=== PATIENT | female | born 1950 | race Caucasian/White ===

== ENCOUNTER 2019-05-13 04:26 | Emergency (ER) | payer OTHER ==
--- NOTE | 2019-05-13 04:50 | PDOC ---
History of Present Illness - General Chief Complaint: Pain, Acute Stated Complaint: ABD PAIN Time Seen by Provider: 05/13/19 04:50 - History of Present Illness Initial Comments: 05/13/19 05:09 69 year old with a history of HTN, HLD, DM who presents with constant cramping upper abdominal pain that onset at 2130 after taking cholesterol medicine and motrin. The patient felt nauseous and had 4 episodes of nbnb emesis. She denies chest pain or shortness of breath. She denies diarrhea, dysuria, hematuria or fever. She has no other complaints. ROS GENERAL/CONSTITUTIONAL: No fever or chills. No weakness. HEAD, EYES, EARS, NOSE AND THROAT: No change in vision. No ear pain or discharge. No sore throat. CARDIOVASCULAR: No chest pain or shortness of breath RESPIRATORY: No cough, wheezing, or hemoptysis. GASTROINTESTINAL: No nausea, vomiting, diarrhea or constipation. GENITOURINARY: No dysuria, frequency, or change in urination. MUSCULOSKELETAL: No joint or muscle swelling or pain. No neck or back pain. SKIN: No rash NEUROLOGIC: No headache, vertigo, loss of consciousness, or change in strength/ sensation. PE GENERAL: Awake, alert, and fully oriented, in no acute distress HEAD: No signs of trauma, normocephalic, atraumatic EYES: EOMI, sclera anicteric, conjunctiva clear ENT: oropharynx clear without exudates. Moist mucosa NECK: Normal ROM, supple, LUNGS: No distress, speaks full sentences, clear to auscultation bilaterally HEART: Regular rate and rhythm, normal S1 and S2, no murmurs, rubs or gallops, peripheral pulses normal and equal bilaterally. ABDOMEN: Soft, + very slight epigastric tenderness, normoactive bowel sounds. No guarding, no rebound. No masses EXTREMITIES : Normal inspection, Normal range of motion, no edema. No clubbing or cyanosis. NEUROLOGICAL: Cranial nerves II through XII grossly intact. Normal speech, no focal sensorimotor deficits SKIN: Warm, Dry, normal turgor, no rashes or lesions noted MDM DDX including but not limited to: GERD r/o acs W/U: - cbc, cmp, trop, ekg, cxr, ua TX: - pepcid, maalox ED Course: labs wnl trop negative ekg nsr at 97bpm patient still complaining of abdominal pain on reassesment CTAP ordered Gloria Fu, PGY2 Emergency Medicine Past History - Past Medical History Allergies/Adverse Reactions: Allergies Allergy/AdvReac Type Severity Reaction Status Date / Time No Known Allergies Allergy Verified 05/13/19 05:23 Home Medications: Ambulatory Orders Nifedipine 10 mg PO DAILY 05/13/19 metFORMIN HCL [Metformin ER Osmotic] 1,000 mg PO DAILY 05/13/19 - Psycho Social/Smoking Cessation Hx Smoking History: Never smoked Have you smoked in the past 12 months: No Information on smoking cessation initiated: No Hx Alcohol Use: No Drug/Substance Use Hx: No *Physical Exam - Vital Signs Last Vital Signs Temp Pulse Resp BP Pulse Ox 98.4 F 99 H 20 155/80 98 05/13/19 04:45 05/13/19 04:45 05/13/19 04:45 05/13/19 04:45 05/13/19 04:45 ED Treatment Course - LABORATORY CBC & Chemistry Diagram: 05/13/19 05:20 05/13/19 05:20 Discharge - Discharge Information Problems reviewed: Yes Clinical Impression/Diagnosis: Abdominal pain Qualifiers: Abdominal location: epigastric Qualified Code(s): R10.13 - Epigastric pain Nausea and vomiting Qualifiers: Vomiting type: unspecified Vomiting Intractability: non-intractable Qualified Code(s): R11.2 - Nausea with vomiting, unspecified Condition: Improved Disposition: HOME - Follow up/Referral Referrals: Ying Molina [Primary Care Provider] - - Patient Discharge Instructions Patient Printed Discharge Instructions: DI for Abdominal Pain-Adult Additional Instructions: You were seen in the Emergency Department for evaluation of abdominal pain. Your labs and imaging were unremarkable. Review the handout provided at discharge. Follow up with your primary care provider within a week. Return to the Emergency Department if you develop fevers/chills, chest pain, trouble breathing, worsening pain, inability to tolerate liquids, worsening symptoms, or any new/concerning symptoms. At this time, maintain a mostly liquid diet, once your are able to tolerate liquids well, you may advance your diet to include soft foods, and once that is tolerated, you may re-introduce solid foods. - Post Discharge Activity
[2019-05-13] MEDS ORDERED: MAG HYDROX/AL HYDROX/SIMETH -MYLANTA- ORAL SUSPENSION PO ONE (05:07)
[2019-05-13] MEDS ORDERED: FAMOTIDINE 20 MG/50 ML IVPB 20 MG/50 ML MG IVPB ONE ×2 (05:07→05:25)
[2019-05-13] MEDS ORDERED: MAG HYDROX/AL HYDROX/SIMETH 30 ML UNIT-DOSE CUP ONE ×2 (05:24→10:06)
[2019-05-13 05:42] LABS: BASO % 0.9 % (0-2.0); EOS % 0.3 % (0-4.5); HEMATOCRIT 39.9 % (32.4-45.2); HEMOGLOBIN 13.5 GM/dL (10.7-15.3); LYMPH % 22.2 % (8-40); MCH 30.9 pg (25.7-33.7); MCHC 33.9 g/dl (32.0-36.0); MEAN CELL VOLUME 91.2 fl (80-96); MEAN PLT VOLUME 9.6 fl (7.5-11.1); MONO % 2.7 % (3.8-10.2); NEUT % 73.9 % (42.8-82.8); PLATELET COUNT 191 K/MM3 (134-434); RBC 4.37 M/mm3 (3.60-5.2); RDW 14.4 % (11.6-15.6); WHITE BLOOD COUNT 10.8 K/mm3 (4.0-10.0)
[2019-05-13 05:43] VITALS: BMI 21.1
--- NOTE | 2019-05-13 05:43 | PDOC ---
Attending Attestation - Resident Resident Name: Gloria Fu - ED Attending Attestation I have performed the following: I have examined & evaluated the patient, The case was reviewed & discussed with the resident, I agree w/resident's findings & plan - HPI HPI: 05/13/19 07:09 Pt comes with epigastric pain that began at 9:30P - Physicial Exam PE: 05/13/19 07:10 Agree with resident exam - Medical Decision Making 05/13/19 07:10 Pt has normal labs; only glc elevated 05/13/19 07:[address] pending 05/14/19 00:18 Pt signed out to the day ER team
[2019-05-13 06:23] LABS: ALBUMIN 4.2 g/dl (3.4-5.0); ALK PHOS 86 U/L (45-117); ANION GAP 9 MMOL/L (8-16); BILIRUBIN,TOTAL 0.5 mg/dL (0.2-1); BLOOD UREA NITROGEN 10.2 mg/dL (7-18); CHLORIDE 103 mmol/L (98-107); CO2 27 mmol/L (21-32); CREATININE 0.8 mg/dL (0.55-1.3); GLUCOSE,RANDOM 244 mg/dL (74-106); POTASSIUM 4.3 mmol/L (3.5-5.1); SGOT/AST 12 U/L (15-37); SGPT/ALT 24 U/L (13-61); SODIUM 139 mmol/L (136-145); TOT PROT 7.6 g/dl (6.4-8.2)
[2019-05-13] MEDS ORDERED: ACETAMINOPHEN 1000 MG/100 ML VIAL (NON FORMULARY) IVPB ONE (06:36)
[2019-05-13] MEDS ORDERED: ACETAMINOPHEN INJECTION 100 ML IVPB ONE (06:38)
--- NOTE | 2019-05-13 07:15 | PDOC ---
*Physical Exam - Vital Signs Last Vital Signs Temp Pulse Resp BP Pulse Ox 98.4 F 99 H 20 155/80 98 05/13/19 04:45 05/13/19 04:45 05/13/19 04:45 05/13/19 04:45 05/13/19 04:45 ED Treatment Course - LABORATORY CBC & Chemistry Diagram: 05/13/19 05:20 05/13/19 05:20 - ADDITIONAL ORDERS Additional order review: Laboratory Results 05/13/19 05/13/19 05:20 05:20 Sodium 139 Cancelled Potassium 4.3 Cancelled Chloride 103 Cancelled Carbon Dioxide 27 Cancelled Anion Gap 9 Cancelled BUN 10.2 Cancelled Creatinine 0.8 Cancelled Est GFR (CKD-EPI)AfAm 87.18 Cancelled Est GFR (CKD-EPI)NonAf 75.22 Cancelled Random Glucose 244 H Cancelled Calcium 9.0 Cancelled Total Bilirubin 0.5 Cancelled AST 12 L Cancelled ALT 24 Cancelled Alkaline Phosphatase 86 Cancelled Troponin I < 0.02 Total Protein 7.6 Cancelled Albumin 4.2 Cancelled 05/13/19 05:20 RBC 4.37 MCV 91.2 MCHC 33.9 RDW 14.4 MPV 9.6 Neutrophils % 73.9 Lymphocytes % 22.2 Monocytes % 2.7 L Eosinophils % 0.3 Basophils % 0.9 - RADIOLOGY Radiograph Interpretation: EXAM: CT abdomen and pelvis with IV contrast. Findings: The visualized portions of the lower thorax are unremarkable. There is no free intra-abdominal gas or fluid. The liver, gallbladder, adrenals, pancreas, and spleen are within normal limits. There is no hydronephrosis or renal calculi bilaterally. There is a tiny left- sided renal hypodensity which is too small to characterize. The bilateral kidneys are otherwise normal. There are no enlarged abdominal or pelvic lymph nodes, by size criteria. The urinary bladder is unremarkable. The pelvic organs are grossly unremarkable, given limitations of CT for evaluating them. The appendix is normal. The remainder of the bowel is unremarkable. There is no evidence of bowel obstruction. There are no abdominal wall hernias. There is some lower lumbar degenerative disc disease. The remainder the visualized bony structures are within normal limits for the patient's age. Impression: Unremarkable CT of the abdomen and pelvis. 05/13/19 08:01 Right upper quadrant abdominal ultrasound FINDINGS: Liver is normal in size and no focal lesions. No gallstones. No abnormal bile duct dilatation. Visualized portions of the pancreas, aorta and IVC unremarkable. Right kidney measures 9.3 cm is unremarkable. IMPRESSION: Negative study 05/13/19 09:48 - Medications Given in the ED: ED Medications Discontinued Medications Generic Name Dose Route Start Last Admin Trade Name Fidencio PRN Reason Stop Dose Admin Acetaminophen 1,000 mg 05/13/19 06:36 05/13/19 06:48 Ofirmev Injection - IVPB 05/13/19 06:37 1,000 mg ONCE ONE Administration Al Hydroxide/Mg Hydroxide 30 ml 05/13/19 05:07 05/13/19 05:33 Mylanta Suspension - PO 05/13/19 05:08 30 ml ONCE ONE Administration Famotidine/Sodium Chloride 20 mg in 50 mls @ 100 mls/hr 05/13/19 05:07 05:33 Pepcid 20 Mg Premixed Ivpb - IVPB 05/13/19 05:36 100 mls/hr ONCE ONE Administration Medical Decision Making - Medical Decision Making Pt received as sign out from Dr. Fu 69 year old with a history of HTN, HLD, DM who presents with constant cramping upper abdominal pain that onset at 2130 after taking cholesterol medicine and motrin. Pending CT A&P, labs, and reassess Lipase added on 05/13/19 07:[address] A&P and RUQ US w/o acute pathology UA w/o evidence of UTI Pt feels improved and is tolerating PO at this time Plan for D/C w/ PCP f/u Discharge instructions and return precautions given Pt in agreement and verbalized understanding Dispo: home 05/13/19 09:58 Discharge - Discharge Information Problems reviewed: Yes Clinical Impression/Diagnosis: Abdominal pain Qualifiers: Abdominal location: epigastric Qualified Code(s): R10.13 - Epigastric pain Nausea and vomiting Qualifiers: Vomiting type: unspecified Vomiting Intractability: non-intractable Qualified Code(s): R11.2 - Nausea with vomiting, unspecified Condition: Improved Disposition: HOME - Admission No - Follow up/Referral Referrals: Ying Molina [Primary Care Provider] - - Patient Discharge Instructions Patient Printed Discharge Instructions: DI for Abdominal Pain-Adult Additional Instructions: You were seen in the Emergency Department for evaluation of abdominal pain. Your labs and imaging were unremarkable. Review the handout provided at discharge. Follow up with your primary care provider within a week. Return to the Emergency Department if you develop fevers/chills, chest pain, trouble breathing, worsening pain, inability to tolerate liquids, worsening symptoms, or any new/concerning symptoms. At this time, maintain a mostly liquid diet, once your are able to tolerate liquids well, you may advance your diet to include soft foods, and once that is tolerated, you may re-introduce solid foods. - Post Discharge Activity
[2019-05-13 07:19] VITALS: BP 150/86; PULSE 97; TEMP 98.5
[2019-05-13 07:27] LABS: LIPASE 172 U/L (73-393)
[2019-05-13 08:58] LABS: URINE APPEARANCE CLEAR; URINE BILIRUBIN NEGATIVE (NEGATIVE); URINE COLOR YELLOW
[2019-05-13 08:59] LABS: PH,URINE 7.5 (5.0-8.0); URINE GLUCOSE (UA) 500 mg/dl (NEGATIVE); URINE KETONE NEGATIVE (NEGATIVE); URINE LEUK ESTERASE NEGATIVE (NEGATIVE); URINE NITRITE NEGATIVE (NEGATIVE); URINE PROTEIN NEGATIVE (NEGATIVE); URINE UROBILINOGEN 0.2 mg/dL (0.2-1.0)
[2019-05-13] MEDS ORDERED: MAG HYDROX/AL HYDROX/SIMETH 30 ML UNIT-DOSE CUP PO ONE (10:05)
--- NOTE | 2019-05-13 20:16 | EKG ---
Test Reason : Blood Pressure : / mmHG Vent. Rate : 097 BPM Atrial Rate : 097 BPM P-R Int : 220 ms QRS Dur : 082 ms QT Int : 308 ms P-R-T Axes : 026 021 -04 degrees QTc Int : 391 ms SINUS RHYTHM WITH 1ST DEGREE A-V BLOCK POSSIBLE LEFT ATRIAL ENLARGEMENT NONSPECIFIC T WAVE ABNORMALITY ABNORMAL ECG NO PREVIOUS ECGS AVAILABLE Confirmed by MD MARKO, CAMDEN ([id number]) on 05/13/2019 8:16:21 PM Referred By: Confirmed By:CAMDEN ZHU MD
== END 2019-05-13 10:06 | disposition home or self-care (01) ==
LOC: JER 04:26
PROC: 3E033GC Introduction of Other Therapeutic Substance into Peripheral Vein, Percutaneous Approach (ICD-10-PCS; principal; 2019-05-13)
PROC: 3E033NZ Introduction of Analgesics, Hypnotics, Sedatives into Peripheral Vein, Percutaneous Approach (ICD-10-PCS; 2019-05-13)
DX: R10.13 Epigastric pain (principal); R11.2 Nausea with vomiting, unspecified; I10 Essential (primary) hypertension; E78.5 Hyperlipidemia, unspecified; E11.9 Type 2 diabetes mellitus without complications
CPT/HCPCS: 36415; 71045-TC-FY; 74177-TC; 76705-TC; 80053; 81003; 83690; 84484; 85025; 87086; 93005; 93010; 99283-25; J0131